=== PATIENT | female | born 1995 | race Caucasian/White ===

== ENCOUNTER 2020-01-21 14:18 | Outpatient (CLI) | payer MEDICAID ==
--- NOTE | 2020-01-21 15:03 | Non Stress Test Report ---
Non Stress Test Datetime Report Generated by CPN: 01/21/2020 15:02 INDICATION Indication for Study (NST) Other: 33+1 repeat NST VITAL SIGNS Temperature - NST: 99.4 Pulse - NST: 102 RESP - NST: 18 NBPSYS NST: 96 NBPDIA NST: 55 MONITORING Monitor Explained: Monitor Explained; Test Explained; Patient Verbalized Understanding Time on Monitor: 01/21/2020 14:33 Time off Monitor: 01/21/2020 14:53 NST Duration: 20 NST INTERVENTIONS NST Interventions: PO Hydration Physician Notified NST: N Ureña CNM BABY A: [id number] BABY A Movement : Present Contraction Frequency : none FHR Baseline : 140 Accelerations : 15X15 Decelerations : None Variability : Moderate 6-25bpm NST Review: Meets Criteria for Reactive NST NST Review and Verified By : MMobley,RN NST Results: Reactive NST REPORT Report Trigger: Send Report
== END 2020-01-21 15:00 | disposition home or self-care (01) ==
LOC: LC 14:18
PROVIDERS: ATTEND Obstetrics & Gynecology
DX: Z34.83 Encounter for supervision of other normal pregnancy, third trimester (principal); Z3A.33 33 weeks gestation of pregnancy; Z88.1 Allergy status to other antibiotic agents
CPT/HCPCS: 59025

== ENCOUNTER 2020-02-01 03:25 | Outpatient (CLI) | payer MEDICAID ==
[2020-02-01 05:03] LABS: APPEARANCE,URINE SLIGHTLY-CLOUDY; BILIRUBIN,URINE NEGATIVE (NEGATIVE); COLOR,URINE STRAW; GLUCOSE, URINE NEGATIVE (NEGATIVE); KETONES,URINE NEGATIVE (NEGATIVE); LEUKOCYTE ESTERASE,URINE TRACE (NEGATIVE); NITRITE,URINE NEGATIVE (NEGATIVE); PROTEIN,URINE NEGATIVE (NEGATIVE); URINE SPECIFIC GRAVITY 1.009; UROBILINOGEN,URINE NEGATIVE mg/dL (<2.0)
[2020-02-01 05:06] LABS: URINE AMPHETAMINES SCREEN NEGATIVE; URINE BARBITURATES SCREEN NEGATIVE; URINE BENZODIAZEPINES SCREEN NEGATIVE; URINE COCAINE SCREEN NEGATIVE; URINE MARIJUANA (THC) SCREEN NEGATIVE; URINE METHADONE SCREEN NEGATIVE; URINE PHENCYCLIDINE SCREEN NEGATIVE
[2020-02-01 07:04] LABS: HEMATOCRIT 30.6 % (36.0-47.0); HEMOGLOBIN 10.8 g/dL (12.0-15.5); MEAN CORPUSCULAR HEMOGLOBIN 31.2 pg (27.0-33.4); MEAN CORPUSCULAR HGB CONC 35.4 g/dL (32.0-36.0); MEAN CORPUSCULAR VOLUME 88 fl (80-97); PLATELET COUNT 198 10^3/uL (150-450); RED BLOOD COUNT 3.46 10^6/uL (3.72-5.28); RED CELL DISTRIBUTION WIDTH 14.2 % (11.5-14.0); WHITE BLOOD COUNT 15.7 10^3/uL (4.0-10.5)
[2020-02-01 07:35] LABS: ABSOLUTE LYMPHOCYTES# (MANUAL) 2.2 10^3/uL (0.5-4.7); ABSOLUTE MONOCYTES # (MANUAL) 0.9 10^3/uL (0.1-1.4); BASOPHILS % (MANUAL) 0 % (0-2); EOSINOPHILS % (MANUAL) 0 % (0-6); LYMPHOCYTES % (MANUAL) 14 % (13-45); MONOCYTES % (MANUAL) 6 % (3-13); SEGMENTED NEUTROPHILS % (MAN) 80 % (42-78); TOTAL CELLS COUNTED 100
[2020-02-01 07:36] LABS: HYPERSEGMENTED NEUTROPHILS PRESENT; PLATELET COMMENT ADEQUATE; PLATELET LARGE PRESENT; POLYCHROMASIA SLIGHT
== END 2020-02-01 07:46 | disposition home or self-care (01) ==
LOC: LC 03:25
PROVIDERS: ATTEND Obstetrics & Gynecology
DX: O46.93 Antepartum hemorrhage, unspecified, third trimester (principal); Z3A.34 34 weeks gestation of pregnancy
CPT/HCPCS: 36415; 59025; 80307; 81001; 85025; 85384

== ENCOUNTER 2020-02-14 01:48 | Inpatient (IN) | payer MEDICAID ==
[2020-02-14 02:19] LABS: APPEARANCE,URINE CLEAR; BILIRUBIN,URINE NEGATIVE (NEGATIVE); COLOR,URINE YELLOW; GLUCOSE, URINE NEGATIVE (NEGATIVE); KETONES,URINE NEGATIVE (NEGATIVE); LEUKOCYTE ESTERASE,URINE NEGATIVE (NEGATIVE); NITRITE,URINE NEGATIVE (NEGATIVE); PROTEIN,URINE NEGATIVE (NEGATIVE); URINE SPECIFIC GRAVITY 1.014; UROBILINOGEN,URINE NEGATIVE mg/dL (<2.0)
[2020-02-14] MEDS: RINGERS SOLUTION,LACTATED 1,000 ML IV PRN ×2 (02:30→03:28)
[2020-02-14 02:52] LABS: URINE AMPHETAMINES SCREEN NEGATIVE; URINE BARBITURATES SCREEN NEGATIVE; URINE BENZODIAZEPINES SCREEN NEGATIVE; URINE COCAINE SCREEN NEGATIVE; URINE MARIJUANA (THC) SCREEN NEGATIVE; URINE METHADONE SCREEN NEGATIVE; URINE PHENCYCLIDINE SCREEN NEGATIVE
[2020-02-14] MEDS ORDERED: HYDROXYZINE PAMOATE 50 MG CAPSULE PO ONE (03:44)
[2020-02-14] MEDS ORDERED: BETAMET ACET/BETAMET NA INJ 6 MG/1 ML IM ONE (03:44)
[2020-02-14] MEDS ORDERED: BETAMET ACET/BETAMET NA INJ 6 MG/1 ML ONE (03:47)
[2020-02-14] MEDS ORDERED: HYDROXYZINE PAMOATE 50 MG CAPSULE ONE (03:48)
--- NOTE | 2020-02-14 03:50 | RADIOLOGY REPORT (SQ) ---
EXAM DESCRIPTION: US LIMITED COMPLETED DATE/TME: 02/14/2020 02:53 CLINICAL HISTORY: 24 years, Female, wellbeing, placental status/wellbeing COMPARISON: None. TECHNIQUE: Transabdominal images of the gravid pelvis were obtained. LIMITATIONS: None. FINDINGS: There is a single, live, intrauterine gestation in a cephalic presentation. Placenta is localized along the rightward aspect of the fundus and extending anteriorly and posteriorly, without evidence of previa or abruption. Amniotic fluid index is 10.4 cm. There is a heart rate of 135 bpm. biometry: BPD 9.3 cm 38 weeks 0 days, HC 34 cm 39 weeks 0 days, AC 35.3 cm 39 weeks 2 days, FL 7.2 cm 37 weeks 0 days. Average sonographic age 38 weeks 2 days, with an estimated date of confinement of February 26, 2020. Estimated weight 3533 g. IMPRESSION: Single, live, intrauterine gestation with measurements and dates as above. No evidence of placenta previa or abruption. copyright 2010 [employer]- All Rights Reserved
[2020-02-14] MEDS ORDERED: MORPHINE SULFATE 10 MG/ML INJ IV ONE ×2 (07:22→10:45)
[2020-02-14] MEDS ORDERED: MORPHINE SULFATE 10 MG/ML INJ ONE ×2 (07:23→10:47)
[2020-02-14] MEDS ORDERED: AZITHROMYCIN INJ 500 MG VIAL IV ONE ×2 (11:29→11:31)
[2020-02-14] MEDS ORDERED: CITRIC ACID/SODIUM CITRATE ORAL SOLN 15 ML UDCUP ONE (11:29)
[2020-02-14] MEDS ORDERED: CITRIC ACID/SODIUM CITRATE ORAL SOLN 15 ML UDCUP PO ONE (11:32)
--- NOTE | 2020-02-14 11:46 | Admission Physical ---
Datetime Report Generated by CPN: 02/14/2020 11:46 CURRENT ADMISSION Chief Complaint: Uterine Contractions; Vaginal Bleeding Chief Complaint Other: has been admitted several times for bleeding this . previous c/section planning repeat. c/o contractions and lower abdominal pain Indication for Induction: Not Applicable Indication for Induction- Other: on vaginal exam, bloody mucus in the vagina. no fresh active bleeding noted. cervical change noted over the course a a couple of hours therefore Admit Impression : , Intrauterine Admit Plan: Admit to Unit; Initiate Section Protocol ALLERGIES Medication Allergies: Yes Medication Allergies: amoxicillin (02/14/2020) Latex: No Latex Allergies Food Allergies: none Environmental Allergies: none OBSTETRICAL HISTORY EDC: 03/09/2020 00:00 : 3 Para: 2 Term: 1 : 1 SAB: 0 IAB: 0 Ectopic: 0 Livin Cesareans: 1 VBACs: 0 Multiple Births: 0 Gestational Diabetes: No Rh Sensitization: No Incompetent Cervix: No JUDITH: No Infertility: No ART Treatment: No Uterine Anomaly: No IUGR: No Hx Previous C/S: Yes Macrosomia: No Hx Loss/Stillborn: No PIH: No Hx : No Placenta Previa/Abruption: Yes Depression/PP Depression: No PTL/PROM: No Post Hemorrhage: No Current Procedures: Ultrasound; NST Obstetrical History Comments: g1- 2015, 40 weeks, , female, 7lb, no complications g2-2018, 32 weeks, csection, female, 4lb, placental abruption stayed in nicu for 33 days g3-current , friable cervix, close spaced SEE RECORDS Alcohol: No Marijuana : No Cocaine: No Other Illicit Drugs: No Cigarettes: Never Smoker. 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 Heart Disease: No Hosp/Surgery: No Autoimmune Disorder: No Anesthetic Complications: No Kidney Disease: No Abnormal Pap Smear: Yes Neuro/Epilepsy: No Psychiatric Disorders: No Other Medical Diseases: No Hepatitis/Liver Disease: No Significant Family History: No Varicosities/Phlebitis: No Trauma/Violence : No Thyroid Dysfunction: No Medical History Comments: past pap repeat normal, csection (Annotations: Data stored by [facility] on behalf of user) INFECTIOUS HISTORY Gonorrhea: No Genital Herpes: No Chlamydia: No Tuberculosis: No Syphilis: No Hepatitis: No HIV/AIDS Exposure: No Rash or Viral Illness: No HPV: No PHYSICAL EXAM General: Normal HEENT: Normal Neurologic: Normal Thyroid: Normal Heart: Normal Lungs: Normal Breast: Normal Back: Normal Abdomen: Normal Genitourinary Exam: Normal Extremities: Normal DTRs: Normal Pelvic Type: Adequate Physical Exam Comments: morphine given x 2 doses, cervical change still progressed from 1-3 cm. patient feeling contractions stronger and they palpate strong. VAGINAL EXAM Dilatation: 3 Effacement: 25 Station: -3 MEMBRANES Pooling: Negative Membranes: Intact FETUS A EGA: 36.4 Monitoring: External US FHR- Baseline: 130 Variability: Moderate 6-25bpm Accelerations: 10X10 Decelerations: None FHR Category: Category II Estimated Weight (gm): 3200 Presentation: Vertex Admit Comment: counseled patient that even with ACS #1 given that baby could have time in the NICU for transitioning. Explained that labor seems to be ensuing and therefore will proceed with planned repeat c/section. Offerred option of BTL but they declined at this time. PLANS FOR LABOR AND DELIVERY Labor and Delivery: None INFORMED CONSENT Signature: with User ID: DoAnderson
[2020-02-14] MEDS ORDERED: AZITHROMYCIN 500 MG in DEXTROSE 5%-WATER 250 ML IV PRN (11:47)
[2020-02-14 12:09] LABS: ABSOLUTE MONOCYTES (AUTO) 0.3 10^3/uL (0.1-1.4); ABSOLUTE NEUT (AUTO) 13.4 10^3/uL (1.7-8.2); BASOPHILS % (AUTO) 0.1 % (0-2); EOSINOPHILS % (AUTO) 0.1 % (0-6); HEMATOCRIT 32.1 % (36.0-47.0); LYMPHOCYTES % (AUTO) 6.7 % (13-45); MEAN CORPUSCULAR HEMOGLOBIN 30.2 pg (27.0-33.4); MEAN CORPUSCULAR HGB CONC 34.2 g/dL (32.0-36.0); MEAN CORPUSCULAR VOLUME 88 fl (80-97); MONOCYTES % (AUTO) 1.9 % (3-13); PLATELET COUNT 184 10^3/uL (150-450); RED BLOOD COUNT 3.64 10^6/uL (3.72-5.28); RED CELL DISTRIBUTION WIDTH 14.8 % (11.5-14.0); SEGMENTED NEUTROPHILS % (AUTO) 91.2 % (42-78); TOTAL CELLS COUNTED % (AUTO) 100 %; WHITE BLOOD COUNT 14.7 10^3/uL (4.0-10.5)
[2020-02-14] MEDS ORDERED: OXYTOCIN 10 UNIT/ML VIAL ONE (12:27)
[2020-02-14] MEDS ORDERED: FENTANYL CITRATE INJ/PF 100 MCG/2 ML AMPUL ONE (12:28)
[2020-02-14] MEDS ORDERED: OXYTOCIN/0.9 % SODIUM CHLORIDE 30 UNIT/500 ML RTUINJ ONE (12:28)
[2020-02-14] MEDS ORDERED: KETOROLAC TROMETHAMINE 60 MG/2 ML SDV ONE (12:28)
[2020-02-14] MEDS ORDERED: ACETAMINOPHEN 1,000 MG/100 ML RTUPB IV ONE (12:28)
[2020-02-14] MEDS ORDERED: ONDANSETRON HCL INJ/PF 4 MG/2 ML SDV ONE (12:28)
[2020-02-14] MEDS ORDERED: AZITHROMYCIN 500 MG in DEXTROSE 5%-WATER 250 ML IV ONE (13:00)
[2020-02-14] MEDS ORDERED: MEASLES,MUMPS&RUBELLA VACC/PF 0.5 ML VIAL SUBCUT PRN (13:39)
[2020-02-14] MEDS ORDERED: PROMETHAZINE HCL INJ 25 MG/1 ML VIAL IV PRN (13:39)
[2020-02-14] MEDS ORDERED: DIPH/PERTUSS(ACELL)/TETANUS VAC/PF 0.5 ML SYR (>=10YO) IM PRN (13:39)
[2020-02-14] MEDS ORDERED: MORPHINE SULFATE 10 MG/ML INJ IV PRN (13:39)
[2020-02-14] MEDS ORDERED: SIMETHICONE 80 MG TAB.CHEW PO PRN (13:39)
[2020-02-14] MEDS ORDERED: ACETAMINOPHEN 325 MG TABLET PO PRN (13:39)
[2020-02-14] MEDS ORDERED: ACETAMINOPHEN 1,000 MG/100 ML RTUPB IV PRN (13:39)
[2020-02-14] MEDS ORDERED: RINGERS SOLUTION,LACTATED 1,000 ML IV PRN (13:39)
[2020-02-14] MEDS ORDERED: OXYCODONE-ACETAMINOPHEN 5-325 MG TABLET PO PRN (13:39)
[2020-02-14] MEDS ORDERED: OXYTOCIN/0.9 % SODIUM CHLORIDE 30 UNIT/500 ML RTUINJ IV PRN (13:39)
--- NOTE | 2020-02-14 13:44 | Operative Report ---
Operative Report DATE OF SURGERY: 02/14/20 PREOPERATIVE DIAGNOSIS: IUP at 36 weeks and 3 days labor previous C-sec tion surgery. POSTOPERATIVE DIAGNOSIS: Same OPERATION: Repeat low transverse hysterotomy section SURGEON: MILAGROS BAILEY ANESTHESIA: Spinal COMPLICATIONS: None ESTIMATED BLOOD LOSS: 850 cc INTRAOPERATIVE FINDINGS: Female infant cephalic presentation Apgars of 8 and 9 PROCEDURE: PROCEDURE IN DETAIL: The patient was taken to the operating room, prepared and draped in a normal sterile fashion in a supine position with a leftward tilt. A transverse skin incision was made with a scalpel and carried through to the underlying layer of fascia with the same scalpel. The fascia was excised in the midline and extended laterally with Vahid. The fascia was then dissected from the rectus muscle sharply with Vahid and the rectus muscle was divided and the peritoneal cavity was entered sharply with the same Metzenbaum. With good visualization of the bladder and the uterus the bladder blade was inserted. The hysterotomy was nicked with a scalpel and extended laterally with surgeon finger fraction. The infant was then delivered atraumatically. The nose and mouth were suctioned with a suction bulb, the cord was clamped and cut and handed off to awaiting pediatricians. Cord blood was collected. The placenta was removed manually. The uterus was exteriorized and cleared of clots and debris. The hysterotomy was closed with 0 Monocryl in a running, locked fashion. A second layer of the same suture was used to imbricate to ensure hemostasis. The uterus was returned to the abdomen and peritoneal cavity was cleared of clots and debris. The rectus muscle and peritoneum were repaired with mattress stitch of 2-0 Chromic. The fascia was closed with 0-Vicryl. The subcutaneous layer was closed with plain catgut and the skin was closed with 4-0 Vicryl. The patient tolerated the procedure well. Sponge, lap, and needle counts correct x2 and the patient was taken to recovery in stable condition.
[2020-02-14] MEDS ORDERED: KETOROLAC TROMETHAMINE INJ/PF 30 MG/1 ML SDV IV SCH (14:00)
--- NOTE | 2020-02-14 14:22 | Birth Certificate Data ---
Cert Data Datetime Report Generated by CPN: 02/14/2020 14:22 CERTIFICATE DATA 47a. Care: Yes (01/21/2020 14:34:DHEERAJ Antoine) 47b. Date of First Visit: 08/24/2019 00:00 (01/21/2020 14:34:Savannah Voss RN) 47c. Date of Last Visit: 02/10/2020 00:00 (01/21/2020 14:34:Savannah Voss RN) 47d. Number of Visits: 15 (01/21/2020 14:34:Savannah Voss RN) 48a. Number of Prev Live Births: 2 (01/21/2020 14:34:Nuvia Mancini RN) 48b. Now Livin (01/21/2020 14:34:Meli Cormier RN) 48c. Live Births Now : 0 (01/21/2020 14:34:QS system process) 48e. Losses: 0 (01/21/2020 14:34:Nuvia Mancini RN) RISK FACTORS IN THIS 49a. Diabetes: No (01/21/2020 14:34:Nivia Bellavance, RNC) 49b. Hypertension: No (01/21/2020 14:34:Nivia Bellavance, RNC) 49c. Previous Births: 1 (01/21/2020 14:34:Meli Cormier RN) 49d. Stillborns: No (01/21/2020 14:34:Nivia Bellavance, RNC) 49d. IUGR: No (01/21/2020 14:34:Nivia Bellavance, RNC) 49e. Infertility Treatment: No (01/21/2020 14:34:Nivia Bellavance, RNC) 49f. Previous Cesareans: 1 (01/21/2020 14:34:Nuvia Mancini RN) Mother's Height 50b. Height Inches: 65 (02/01/2020 04:07:QS system process) Mother's Weight 51a. Pre- Weight (lbs): 124 (01/21/2020 14:34:Nuvia Mancini RN) 51b. Weight at Delivery (lbs): 167 (02/14/2020 12:54:QS system process) 52. Dt Last Normal Menses Began: 06/03/2019 00:00 (01/21/2020 14:34:Savannah Voss RN) Infections Present/Treated 53a. Gonorrhea: No (01/21/2020 14:34:DHEERAJ Antoine) Results this Hospital Visit : Negative (01/21/2020 14:34:Nuvia Mancini RN) 53b. Syphilis: No (01/21/2020 14:34:DHEERAJ Antoine) 53c. Chlamydia: No (01/21/2020 14:34:DHEERAJ Antoine) Results this Hospital Visit: Negative (01/21/2020 14:34:Nuvia Mancini RN) 53d. Hepatitis B: No (01/21/2020 14:34:DHEERAJ Antoine) Results this Hospital Visit: Negative (01/21/2020 14:34:Nuvia Mancini RN) 53e. Hepatitis C: Negative (01/21/2020 14:34:Oumou Cortez RN) 53h. Mother Tested for HBsAG: Yes (01/21/2020 14:34:DHEERAJ Antoine) 53j. Test Result: Negative (01/21/2020 14:34:Nuvia Mancini RN) Obstetric Procedures 54a, b, c. Obstetric Procedures: Ultrasound; NST (01/21/2020 14:34:Oumou Cortez RN) Cigarette Smoking 55a. 3 Months Before Preg - Ci (01/21/2020 14:34:Nuvia Mancini RN) 55b. 1st Trimester of Preg- Ci (01/21/2020 14:34:Nuvia Mancini RN) 55c. 2nd Trimester of Preg- Ci (01/21/2020 14:34:Nuvai Mancini RN) 55d. 3rd Trimester of Preg- Ci (01/21/2020 14:34:Nuvia Mancini RN) Onset of Labor 56a. PROM >12 Hrs: 0.00 (01/21/2020 14:34:QS system process) 57a. Induction of Labor: N/A (01/21/2020 14:34:Debbie Jessica RN) 57c. Non-Vertex Presentation A: Vertex (01/21/2020 14:34:Savannah Voss RN) 57d. Steroids - Lung Mat: Partial Course (01/21/2020 14:34:Oumou Cortez RN) 57d. Steroids - Lung Mat: Celestone 12mg IM - Dose 1 (Annotations: given in left vastus lateralis) (02/14/2020 03:51:Oumou Cortez RN) 57d. Steroids - Lung Mat: Imminent Delivery (01/21/2020 14:34:Debbie Jessica RN) 57g. Moderate/Heavy Meconium: Clear (01/21/2020 14:34:Savannah Voss RN) 57h. Intolerance of Labor: Repeat Elective (01/21/2020 14:34:Savannah Voss RN) 57i. Epidural/Spinal Anesthesia: None (01/21/2020 14:34:Debbie Jessica RN) Method of Delivery 58a. Forceps - Unsuccessful A: N/A (01/21/2020 14:34:Debbie Jessica RN) 58b. Vacuum - Unsuccessful A: N/A (01/21/2020 14:34:Debbie Jessica RN) 58c. Presentation at 58c. Presentation at - A : Vertex (01/21/2020 14:34:Savannah Voss RN) 58c. Presentation at - A : N/A (01/21/2020 14:34:Debbie Jessica RN) 58c. Presentation at - A : Cephalic (01/21/2020 14:34:Savannah Voss RN) Final Route and Method of Del 58d. Baby A Route/Delivery: (01/21/2020 14:34:Savannah Voss RN) 58e. Trial of Labor Attempted: No (01/21/2020 14:34:Debbie Jessica RN) 58e. Trial of Labor Attempted A: N/A (01/21/2020 14:34:Debbie Jessica RN) 58e. Trial of Labor Attempted B: N/A (01/21/2020 14:34:Debbie Jessica RN) Maternal Morbidity 59b. 3rd or 4th Degree Lacs: None (01/21/2020 14:34:Debbie Jessica RN) Birthweight Baby A: 3700 (01/21/2020 14:34:Rachael Wan RN) 60a. Pounds : 8 (01/21/2020 14:34:QS system process) 60b. Ounces: 3 (01/21/2020 14:34:QS system process) 61. GA at Delivery Baby A: 36.4 (01/21/2020 14:34:Debbie Jessica RN) : Late - 34- 36.6 Weeks (01/21/2020 14:34:QS system process) 62a. 5 Minute Baby A: 9 (01/21/2020 14:34:QS system process)
--- NOTE | 2020-02-14 14:22 | Delivery Summary ---
Del Sum A-C Datetime Report Generated by CPN: 02/14/2020 14:22 DELIVERY PERSONNEL DELIVERY PERSONNEL: [id number] Delivery Doctor:: Liz José MD Anesthesiologist:: Keturah Ham MD CUSHION COVER INSPECTOR:: Nereyda hWitman CUSHION COVER INSPECTOR Fashion Patternmaker:: Savannah Voss RN Neonatal Nurse Practitioner:: ASHISH Vale Nursery Nurse:: Rachael Wan RN Marketing Traffic Coordinator/BIODIESEL PRODUCT MANAGER: Sabrina Kapoor, CONTACT CENTER PROFESSIONAL MATERNAL INFORMATION Delivery Anesthesia: Spinal Medications After Delivery: Pitocin 30 Units in 500ml NS/D5W Delivery QBL: 360 LABOR SUMMARY EDC: 03/09/2020 00:00 No. Babies in Womb: 1 Attempted: No Labor Anesthesia: None LABOR INFORMATION Reason for Induction: Not Applicable Oxytocin: N/A Steroids Given: Partial Course Reason Steroids Not Administered: Imminent Delivery MEMBRANES Membranes Rupture Method: Artificial Rupture of Membranes: 02/14/2020 13:04 Length of Rupture (hr): 0.00 Amniotic Fluid Color: Clear Amniotic Fluid Amount: Moderate Amniotic Fluid Odor: Normal STAGES OF LABOR Stage 3 hr: 0 Stage 3 min: 1 VAGINAL DELIVERY Episiotomy: None Laceration #1: None Laceration Extension #1: N/A Laceration Repair: Not Applicable Sponge Count Correct: N/A Sharps Count Correct: N/A CSECTION DELIVERY Primary Indication: Repeat Elective CSection Urgency: Non-Scheduled CSection Incidence: Repeat Labor: Labor Elective: Nonelective CSection Incision: Lower Uterine Transverse BABY A INFORMATION Infant Delivery Date/Time: 02/14/2020 13:04 Method of Delivery: Nurse Controlled Delivery: No Born in Route : No : N/A Forceps: N/A Vacuum Extraction: N/A Shoulder Dystocia : No PRESENTATION/POSITION BABY A Presentation: Cephalic Cephalic Presentation: Vertex Breech Presentation: N/A PLACENTA INFORMATION BABY A Placenta Delivery Time : 02/14/2020 13:05 Placenta Method of Delivery: Manual Removal Placenta Status: Delivered SCORES BABY A Heart Rate 1 min: >100 bpm Resp Effort 1 min: Good Cry Reflex Irritability 1 min: Cough or Sneeze or Pulls Away Muscle Tone 1 min: Active Motion Color 1 min: Body [place], Extremities Blue Resuscitation Effort 1 min: Tactile Stimulation SCORE 1 MIN: 9 Heart Rate 5 min: >100 bpm Resp Effort 5 min: Good Cry Reflex Irritability 5 min: Cough or Sneeze or Pulls Away Muscle Tone 5 min: Active Motion Color 5 min: Body [place], Extremities Blue Resuscitation Effort 5 min: N/A SCORE 5 MIN: 9 INFORMATION BABY A Gestational Age at Delivery: 36.4 Gestational Status: Late - 34- 36.6 Weeks Outcome : Liveborn Condition : Stable Infant Sex: Female IDENTIFICATION BABY A Verification Date/Time: 02/14/2020 13:17 ID Band Number: [id number] Mother's Name Verified: Yes RN Verifying : Waqar Voss RN, J. Wan RN WEIGHT/LENGTH BABY A Birthweight (gm): 3700 Infant Weight (lb): 8 Infant Weight (oz): 3 Infant Length (in): 20.00 Infant Length (cm): 50.80 CORD INFORMATION BABY A No. Cord Vessels: 3 Nuchal Cord : N/A Cord Blood Taken: Yes-For Eval (Mom's Blood Type - or O+) Infant Suction: None BABY B INFORMATION : N/A
[2020-02-14] MEDS: OXYCODONE-ACETAMINOPHEN 5-325 MG TABLET PO PRN (17:41)
[2020-02-14] MEDS: IBUPROFEN 800 MG TABLET PO SCH (18:16)
[2020-02-14] MEDS: DOCUSATE SODIUM 100 MG CAPSULE PO SCH (18:21)
[2020-02-14] MEDS: KETOROLAC TROMETHAMINE INJ/PF 30 MG/1 ML SDV IV SCH (18:22)
[2020-02-15] MEDS: KETOROLAC TROMETHAMINE INJ/PF 30 MG/1 ML SDV IV SCH ×2 (02:11→12:11)
[2020-02-15] MEDS: IBUPROFEN 800 MG TABLET PO SCH ×4 (04:07→17:12)
[2020-02-15 07:22] LABS: HEMATOCRIT 27.6 % (36.0-47.0); HEMOGLOBIN 9.4 g/dL (12.0-15.5); MEAN CORPUSCULAR HEMOGLOBIN 30.1 pg (27.0-33.4); MEAN CORPUSCULAR VOLUME 89 fl (80-97); PLATELET COUNT 187 10^3/uL (150-450); RED BLOOD COUNT 3.11 10^6/uL (3.72-5.28); RED CELL DISTRIBUTION WIDTH 14.8 % (11.5-14.0); WHITE BLOOD COUNT 19.9 10^3/uL (4.0-10.5)
[2020-02-15] MEDS: DOCUSATE SODIUM 100 MG CAPSULE PO SCH ×2 (10:16→17:12)
[2020-02-15] MEDS: PRENATAL VITAMIN W DHA CAPSULE PO SCH (10:16)
[2020-02-15] MEDS: OXYCODONE-ACETAMINOPHEN 5-325 MG TABLET PO PRN ×2 (10:18→21:11)
--- NOTE | 2020-02-15 11:00 | PDOC PROGRESS REPORT ---
Subjective-OB Progress Note for:: 02/15/20 - POD #1, doing well, A negative, , Physical Exam (OB) Vital Signs: Temp Pulse Resp BP Pulse Ox 97.9 F 78 16 104/58 L 97 02/15/20 07:34 02/15/20 07:34 02/15/20 07:34 02/15/20 07:34 02/15/20 07:34 Intake & Output 02/14/20 02/15/20 02/16/20 06:59 06:59 06:59 Intake Total 967 Output Total 2500 450 Balance 967 -2500 -450 Weight 75.8 kg - General General Appearance: Appears well, Alert In distress: None - PIH/Pre-Eclampsia DTR's: 2 + Clonus: Negative Headache: Absent Epigastric Pain: No Visual Changes: No - Dressing Removed: No - opsite, small, dry drainage Incision: Dressing Closure Type: Surgical Glue - Bilateral Tubal Ligation Dressing Removed: No Site: Draining - Maternal Morbidity 59. Maternal Morbidity (serious complications experinced by the mother associated with labor and delivery: None of the above - Lochia Lochia Amount: Small 10-25 ml Lochia Color: Rubra/Red - Abdomen Description: Soft, Round Hernia Present: No Fundal Description: Firm, Midline Fundal Height: u/u - u/2 - Respiratory Respiratory Status: No respiratory distress Breath sounds: Clear - Abdominal Distension: No distension Tenderness: Nontender - Genitourinary Genitourinary Note: voiding - Extremities Upper extremity: Normal inspection Lower extremities: Normal inspection - Neurological Cognition: Normal Orientation: AAOx4 - Psychological Associated symptoms: Normal affect, Normal mood - Skin Skin Temperature: Warm Skin Moisture: Dry Objective-Diagnostic Laboratory: 02/15/20 06:37 02/14/20 02/14/20 02/15/20 11:57 11:57 06:37 WBC 14.7 H 19.9 H RBC 3.64 L 3.11 L Hgb 11.0 L 9.4 L Hct 32.1 L 27.6 L MCV 88 89 MCH 30.2 30.1 MCHC 34.2 34.0 RDW 14.8 H 14.8 H Plt Count 184 187 Seg Neutrophils % 91.2 H Blood Type A NEGATIVE Antibody Screen POSITIVE Assessment and Plan(PN) - Assessment and Plan (1) S/P repeat low transverse Is this a current diagnosis for this admission?: Yes (2) Rh negative status during Qualifiers: Trimester: third trimester Qualified Code(s): O26.893 - Other specified related conditions, third trimester; Z67.91 - Unspecified blood type, Rh negative Is this a current diagnosis for this admission?: Yes (3) Acute on chronic blood loss anemia Is this a current diagnosis for this admission?: Yes Plan:: Routine PP and Post Op orders, ambulation encouraged - Time Spent with Patient Time with patient: Less than 15 minutes Medications reviewed and adjusted accordingly: Yes - Disposition Anticipated Discharge Disposition: Home, Self Care Anticipated Discharge Timeframe: within 48 hours
[2020-02-16] MEDS: IBUPROFEN 800 MG TABLET PO SCH ×3 (00:01→12:02)
[2020-02-16] MEDS: DOCUSATE SODIUM 100 MG CAPSULE PO SCH (09:17)
[2020-02-16] MEDS: PRENATAL VITAMIN W DHA CAPSULE PO SCH (09:17)
[2020-02-16] MEDS: OXYCODONE-ACETAMINOPHEN 5-325 MG TABLET PO PRN (09:17)
[2020-02-16 10:34] VITALS: BP 102/56
[2020-02-16 12:07] LABS: ABSOLUTE EOSINOPHILS # (AUTO) 0.2 10^3/uL (0.0-0.6); ABSOLUTE LYMPHOCYTES (AUTO) 1.9 10^3/uL (0.5-4.7); ABSOLUTE MONOCYTES (AUTO) 1.1 10^3/uL (0.1-1.4); ABSOLUTE NEUT (AUTO) 12.9 10^3/uL (1.7-8.2); BASOPHILS % (AUTO) 0.2 % (0-2); EOSINOPHILS % (AUTO) 1.4 % (0-6); HEMATOCRIT 30.1 % (36.0-47.0); LYMPHOCYTES % (AUTO) 11.9 % (13-45); MEAN CORPUSCULAR HGB CONC 33.4 g/dL (32.0-36.0); MEAN CORPUSCULAR VOLUME 90 fl (80-97); MONOCYTES % (AUTO) 6.8 % (3-13); PLATELET COUNT 185 10^3/uL (150-450); RED BLOOD COUNT 3.34 10^6/uL (3.72-5.28); RED CELL DISTRIBUTION WIDTH 14.9 % (11.5-14.0); SEGMENTED NEUTROPHILS % (AUTO) 79.7 % (42-78); TOTAL CELLS COUNTED % (AUTO) 100 %; WHITE BLOOD COUNT 16.1 10^3/uL (4.0-10.5)
--- NOTE | 2020-02-16 13:02 | PDOC DISCHARGE SUMMARY ---
Impression - Admit/DC Date/PCP Admission Date/Primary Care Provider: 02/14/20 10:50 MILAGROS BAILEY MD Discharge Date: 02/16/20 - Discharge Diagnosis (1) delivery Is this a current diagnosis for this admission?: Yes (2) Rh negative status during Is this a current diagnosis for this admission?: Yes (3) S/P repeat low transverse Is this a current diagnosis for this admission?: Yes - Additional Information Discharge Diet: Regular Discharge Activity: Balance Activity w/Rest, No Driving, No Lifting Over 10 Pounds, No Lifting/Push/Pulling, Pelvic Rest, No tub bath, Walk Frequently Referrals: MILAGROS BAILEY MD [Primary Care Provider] - Prescriptions: Ibuprofen [Motrin 800 mg Tablet] 800 mg PO Q8HP PRN #90 tablet PRN Reason: Oxycodone HCl/Acetaminophen [Percocet 5-325 mg Tablet] 1 tab PO Q4HP PRN #30 tablet PRN Reason: Home Medications: Ibuprofen [Motrin 800 mg Tablet] 800 mg PO Q8HP PRN #90 tablet 02/16/20 Oxycodone HCl/Acetaminophen [Percocet 5-325 mg Tablet] 1 tab PO Q4HP PRN #30 tablet 02/16/20 Hospital Course 59. Maternal Morbidity (serious complications experinced by the mother associated with labor and delivery: None of the above Results Laboratory Results: WBC 16.1 10^3/uL (4.0-10.5) H 02/16/20 11:07 RBC 3.34 10^6/uL (3.72-5.28) L 02/16/20 11:07 Hgb 10.0 g/dL (12.0-15.5) L 02/16/20 11:07 Hct 30.1 % (36.0-47.0) L 02/16/20 11:07 MCV 90 fl (80-97) 02/16/20 11:07 MCH 30.0 pg (27.0-33.4) 02/16/20 11:07 MCHC 33.4 g/dL (32.0-36.0) 02/16/20 11:07 RDW 14.9 % (11.5-14.0) H 02/16/20 11:07 Plt Count 185 10^3/uL (150-450) 02/16/20 11:07 Lymph % (Auto) 11.9 % (13-45) L 02/16/20 11:07 [place] % (Auto) 6.8 % (3-13) 02/16/20 11:07 Eos % (Auto) 1.4 % (0-6) 02/16/20 11:07 Baso % (Auto) 0.2 % (0-2) 02/16/20 11:07 Absolute Neuts (auto) 12.9 10^3/uL (1.7-8.2) H 02/16/20 11:07 Absolute Lymphs (auto) 1.9 10^3/uL (0.5-4.7) 02/16/20 11:07 Absolute Monos (auto) 1.1 10^3/uL (0.1-1.4) 02/16/20 11:07 Absolute Eos (auto) 0.2 10^3/uL (0.0-0.6) 02/16/20 11:07 Absolute Basos (auto) 0.0 10^3/uL (0.0-0.2) 02/16/20 11:07 Seg Neutrophils % 79.7 % (42-78) H 02/16/20 11:07 Urine Color YELLOW 02/14/20 02:02 Urine Appearance CLEAR 02/14/20 02:02 Urine pH 6.0 (5.0-9.0) 02/14/20 02:02 Ur Specific [place] 1.014 02/14/20 02:02 Urine Protein NEGATIVE mg/dL (NEGATIVE) 02/14/20 02:02 Urine Glucose (UA) NEGATIVE mg/dL (NEGATIVE) 02/14/20 02:02 Urine Ketones NEGATIVE mg/dL (NEGATIVE) 02/14/20 02:02 Urine Blood SMALL (NEGATIVE) H 02/14/20 02:02 Urine Nitrite NEGATIVE (NEGATIVE) 02/14/20 02:02 Urine Bilirubin NEGATIVE (NEGATIVE) 02/14/20 02:02 Urine Urobilinogen NEGATIVE mg/dL (<2.0) 02/14/20 02:02 Ur Leukocyte Esterase NEGATIVE (NEGATIVE) 02/14/20 02:02 Urine WBC (Auto) 1 /HPF 02/14/20 02:02 Urine RBC (Auto) 2 /HPF 02/14/20 02:02 Squamous Epi Cells Auto 1 /HPF 02/14/20 02:02 Urine Mucus (Auto) RARE /LPF 02/14/20 02:02 Urine Ascorbic Acid NEGATIVE (NEGATIVE) 02/14/20 02:02 Urine Opiates Screen NEGATIVE 02/14/20 02:02 Urine Methadone Screen NEGATIVE 02/14/20 02:02 Ur Barbiturates Screen NEGATIVE 02/14/20 02:02 Ur Phencyclidine Scrn NEGATIVE 02/14/20 02:02 Ur Amphetamines Screen NEGATIVE 02/14/20 02:02 U Benzodiazepines Scrn NEGATIVE 02/14/20 02:02 Urine Cocaine Screen NEGATIVE 02/14/20 02:02 U Marijuana (THC) Screen NEGATIVE 02/14/20 02:02 RPR NONREACTIVE (NONREACTIVE) 02/14/20 11:57 Blood Type A NEGATIVE 02/14/20 11:57 Antibody Screen POSITIVE 02/14/20 11:57 Antibody Identification RHOGAM INDUCED ANTI-D 02/14/20 11:57 Impressions: Obstetrics Ultrasound 02/14/20 02:53 IMPRESSION: Single, live, intrauterine gestation with measurements and dates as above. No evidence of placenta previa or abruption. copyright 2010 [employer]- All Rights Reserved Plan Plan of Treatment: follow up in one week at [facility] for incision check
== END 2020-02-16 13:45 | disposition home or self-care (01) | DRG 787 ==
LOC: LC 01:48 → LR 10:50 → OBSVTOIN 10:50 → LR 12:54 → 2S 14:50
PROVIDERS: ADMIT Obstetrics & Gynecology; ATTEND Obstetrics & Gynecology
PROC: 10D00Z1 Extraction of Products of Conception, Low, Open Approach (ICD-10-PCS; principal; 2020-02-14)
DX: O60.14X0 Preterm labor third trimester with preterm delivery third trimester, not applicable or unspecified (principal); D62 Acute posthemorrhagic anemia; O67.8 Other intrapartum hemorrhage; O34.211 Maternal care for low transverse scar from previous cesarean delivery; N85.8 Other specified noninflammatory disorders of uterus; O99.02 Anemia complicating childbirth; Z3A.36 36 weeks gestation of pregnancy; Z37.0 Single live birth; Z67.11 Type A blood, Rh negative
CPT/HCPCS: 1961; 36415; 76815; 80307; 81001; 85025; 85027; 86592; 86850; 86870; 86900; 86901; 94799; 99140; J0131; J0456; J0702; J1885; J2270; J2405; J2590; J3010; J3490; J7060